=== PATIENT | male | born 1940 | race Caucasian/White ===

== ENCOUNTER → 2020-12-15 | Outpatient (CLI) | payer OTHER ==
[~2020-12-15] MED LIST: ASPIR 8181 MG PO; COVID-19 VACC, MRNA(MODERNA)/PF 100 MCG/0.5 ML VIAL IM ONE; CRESTOR10 MG PO; FUROSEMIDE40 MG PO; IRON PO; LISINOPRIL2.5 MG PO; METFORMIN HCL500 M2 PO; METOPROLOL TART50 MG PO; PLAVIX75 MG PO; POTASSIUM CHLO10 ME1 PO; TERAZOSIN HCL10 MG PO
== END | disposition home or self-care (01) ==
LOC: VACCPMC 16:54
DX: Z23 Encounter for immunization (principal); Z20.822 Contact with and (suspected) exposure to COVID-19
CPT/HCPCS: 91301

== ENCOUNTER → 2021-01-12 | Outpatient (CLI) | payer MEDICARE, OTHER | END | disposition home or self-care (01) | LOC: VACCPMC 09:00 | DX: Z23 Encounter for immunization (principal); Z20.822 Contact with and (suspected) exposure to COVID-19 | CPT/HCPCS: 91301 ==